=== PATIENT | male | born 1940 | race Two or more races ===

== ENCOUNTER 2024-03-31 11:15 | Inpatient (IN) | payer OTHER ==
[~2024-03-31] VITALS: Ht 172.7 cm; Wt 90.7 kg
[2024-03-31] MEDS ORDERED: PLAVIX75 MG (11:20)
[2024-03-31] MEDS ORDERED: BUSPIRONE HCL10 MG (11:20)
[2024-03-31] MEDS ORDERED: COZAAR50 MG (11:21)
[2024-03-31] MEDS ORDERED: HORIZANT300 MG (11:21)
[2024-03-31] MEDS ORDERED: ZOCOR20 MG (11:22)
[2024-03-31] MEDS ORDERED: TAMS0.4C (11:22)
[2024-03-31] MEDS ORDERED: LANTUS SOL100 UNIT/1 (11:22)
[2024-03-31] MEDS ORDERED: TOPROL XL25 M1 (11:22)
--- NOTE | 2024-03-31 11:22 | NUR ---
PTE ALERTA Y DESORIENTADO ACOMPANADO DE HENRY HIJA QUE REFIERE QUE PTE SE ESTA QUEJANDO DE DOLOR ABDOMINAL, VOMITOS X1. SE LE RAFI S/V Y SE UBICA
[2024-03-31] MEDS ORDERED: FAMOTIDINE/PF 20 MG/2 ML VIAL ONE (12:09)
[2024-03-31] MEDS ORDERED: FAMOTIDINE/PF 20 MG/2 ML VIAL IV ONE (12:15)
[2024-03-31] MEDS ORDERED: MORPHINE SULFATE 4 MG/ML VIAL IV ONE (12:15)
[2024-03-31] MEDS ORDERED: 0.9 % SODIUM CHLORIDE 500 ML IV SCH (12:15)
--- NOTE | 2024-03-31 12:18 | NUR ---
SE LE ORIENTA A PACIENTE SOBRE LA ORDEN MEDICA, REFIERE ENTENDER LAS MISMAS. SE CANALIZA Y SE LE COLOCA EL IVF'S, SE LE RAFI LAS MUETRAS Y SE LE ADMINISTRAN LOS MEDICAMENTOS FRANCISCA LA ORDEN MEDICA.
[2024-03-31 12:47] LABS: MEAN CELL VOLUME 97.5 fL (80.0-100.00); MEAN CORPUSCULAR HGB CONC 33.6 g/dl (32.0-36.0); PLATELET COUNT 170 K/uL (150-450); RED BLOOD COUNT 2.43 M/uL (4.00-6.00); RED CELL DISTRIBUTION WIDTH 16.3 % (11.5-14.5)
[2024-03-31 12:49] LABS: MEAN CORPUSCULAR HEMOGLOBIN 32.5 pg (27.00-32.0)
[2024-03-31 12:50] LABS: HEMATOCRIT 23.6 % (39.0-48.0); HEMOGLOBIN 7.9 g/dL (13-16.00)
[2024-03-31 12:57] LABS: CALCIUM 10.1 mg/dL (8.5-10.1)
[2024-03-31 13:19] LABS: CREATININE SERUM 11.2 mg/dL (0.70-1.30); GFR 4.37
[2024-03-31 13:20] LABS: POTASSIUM 6.14 mEq/L (3.5-5.1)
[2024-03-31] MEDS ORDERED: INSULIN REGULAR, HUMAN 1,000 UNIT/10 ML UNITS IV NR (13:30)
[2024-03-31] MEDS ORDERED: DEXTROSE 50 % IN WATER 0.5 G/ML VIAL IV ONE (13:30)
[2024-03-31] MEDS ORDERED: CALCIUM GLUCONATE 100 MG/ML VIAL IV ONE ×2 (13:30→19:30)
[2024-03-31] MEDS ORDERED: CALCIUM GLUCONATE 100 MG/ML VIAL ONE ×2 (14:15→19:40)
[2024-03-31 15:51] LABS: PH,URINE 5.5 (5.0-8.0); URINE APPEARANCE Clear; URINE BILIRRUBIN Negative (NEGATIVE); URINE BLOOD Negative; URINE COLOR Yellow; URINE GLUCOSE Negative (NEGATIVE); URINE LEUKOCYTE Trace; URINE NITRATE Negative; URINE PROTEIN 30 (NEGATIVE); URINE UROBILINOGEN 0.2 E.U./dl
[2024-03-31 15:52] LABS: URINE BACTERIA 12.5 uL (0.0-1933); URINE WBC 14.5 uL (0.0-23.2)
[2024-03-31 16:03] LABS: URINE RBC 0.1 uL (0.0-20.8)
[2024-03-31] MEDS ORDERED: SODIUM BICARBONATE 1 MEQ/ML DISP.SYRIN 50ML IV ONE (19:15)
[2024-03-31] MEDS ORDERED: SODIUM CHLORIDE 0.45 % 1,000 ML IV SCH (19:15)
[2024-03-31] MEDS ORDERED: DEXTROSE 5 %-0.45 % SOD CHLORD 1,000 ML IV SCH (19:30)
[2024-03-31] MEDS ORDERED: INSULIN REGULAR, HUMAN 1,000 UNIT/10 ML UNITS IV ONE (19:30)
[2024-03-31] MEDS ORDERED: SODIUM BICARBONATE 50MEQ/50ML VIAL IV ONE (19:42)
[2024-03-31] MEDS ORDERED: SODIUM POLYSTYRENE SULFONATE 15 G/4 TSP TSP PO ONE (19:45)
[2024-03-31] MEDS ORDERED: LEVALBUTEROL HCL 1.25 MG/3 ML SOLUTION IH ONE (20:51)
[2024-03-31 21:09] LABS: INR 1.14; PARTIAL THROMBOPLASTIN TIME 25.6 SECONDS (22.0-34.0); PROTHROMBIN TIME 11.9 SECONDS (9.0-11.5)
[2024-03-31] MEDS ORDERED: DEXTROSE 50 % IN WATER 0.5 G/ML VIAL IV PRN (22:15)
[2024-03-31] MEDS ORDERED: INSULIN LISPRO 1,000 UNIT/10 ML UNITS SUBCUTANEO PRN (22:15)
[2024-03-31 22:45] LABS: ALBUMIN 2.5 gm/dL (3.4-5.0); BILIRUBIN TOTAL 0.31 mg/dL (0.3-1.2); CALCIUM 8.2 mg/dL (8.5-10.1); GFR 5.64; GLOBULINA 4.2 G/DL (2.4-3.5); POTASSIUM 4.72 mEq/L (3.5-5.1); PROSTATIC SPECIFIC ANTIGEN 1.35 NG/ML (0.010-4.00); TOTAL PROTEIN 6.7 gm/dL (6.4-8.2)
[2024-03-31 22:53] LABS: CREATININE SERUM 8.98 mg/dL (0.70-1.30)
[2024-04-01] MEDS ORDERED: ACETAMINOPHEN 650 MG SUPP.RECT RECTAL ONE (00:19)
[2024-04-01] MEDS ORDERED: DILTIAZEM HCL 25 MG/5 ML VIAL IV ONE ×2 (00:51)
[2024-04-01 01:53] LABS: ABG PH 7.358 (7.35-7.45); ABG pCO2 34.8 mmHg (35-45); BASE EXCESS -5.5 mmol/l; BICARBONATE 19.1 mmol/l (23-25); SaO2 90.9 %; Tco2 20.2 mmol/l; allen test SATISFACTORY; o2 32 %; puncture site BRADIAL LEFT
[2024-04-01 01:55] LABS: ABG PO2 64.7 mmHg (80-100)
[2024-04-01] MEDS ORDERED: IRON FUM,PS/FOLIC/BCOMP,C NO.9 1 CAP CAPSULE PO SCH (09:00)
[2024-04-01] MEDS ORDERED: SODIUM POLYSTYRENE SULFONATE 30GM/8 TSP PO SCH (09:00)
[2024-04-01] MEDS ORDERED: TAMSULOSIN HCL 0.4 MG CAP PO SCH (09:00)
[2024-04-01] MEDS ORDERED: FINASTERIDE 5 MG TABLET PO SCH (09:00)
[2024-04-01] MEDS ORDERED: FAMOTIDINE/PF 20 MG in 0.9 % SODIUM CHLORIDE 100 ML IV SCH (09:00)
[2024-04-01] MEDS ORDERED: METOPROLOL SUCCINATE 25 MG TAB.SR.24H PO SCH (09:00)
[2024-04-01] MEDS ORDERED: FOLIC ACID 1 MG TABLET PO SCH (09:00)
[2024-04-01] MEDS ORDERED: METHYLPREDNISOLONE SOD SUCC 40 MG VIAL IV SCH (09:30)
[2024-04-01] MEDS ORDERED: DIPHENHYDRAMINE HCL 50 MG/ML VIAL 1ML IV SCH (09:30)
[2024-04-02] MEDS ORDERED: 0.9 % SODIUM CHLORIDE 1,000 ML IV SCH (08:30)
[2024-04-02 10:04] LABS: HEMATOCRIT 35.2 % (39.0-48.0); HEMOGLOBIN 11.8 g/dL (13-16.00); MEAN CELL VOLUME 91.6 fL (80.0-100.00); MEAN CORPUSCULAR HEMOGLOBIN 30.8 pg (27.00-32.0); MEAN CORPUSCULAR HGB CONC 33.6 g/dl (32.0-36.0); PLATELET COUNT 152 K/uL (150-450); RED BLOOD COUNT 3.84 M/uL (4.00-6.00); RED CELL DISTRIBUTION WIDTH 18.3 % (11.5-14.5)
[2024-04-02 10:50] LABS: CALCIUM 9.1 mg/dL (8.5-10.1); GFR 5.15; MAGNESIUM 1.8 mg/dL (1.8-2.4); PHOSPHOROUS 8.3 mg/dL (2.5-4.9); POTASSIUM 4.67 mEq/L (3.5-5.1)
[2024-04-02 11:18] LABS: CREATININE SERUM 9.71 mg/dL (0.70-1.30)
[2024-04-02] MEDS ORDERED: PIPERACILLIN/TAZOBACTAM SODIUM 2.25 GM in 0.9 % SODIUM CHLORIDE 50 ML IV SCH (13:28)
[2024-04-02] MEDS ORDERED: AZITHROMYCIN 500 MG VIAL IV NR (13:30)
[2024-04-03 06:48] LABS: HEMATOCRIT 31.1 % (39.0-48.0); HEMOGLOBIN 10.5 g/dL (13-16.00); MEAN CELL VOLUME 91.3 fL (80.0-100.00); MEAN CORPUSCULAR HEMOGLOBIN 30.8 pg (27.00-32.0); MEAN CORPUSCULAR HGB CONC 33.7 g/dl (32.0-36.0); PLATELET COUNT 137 K/uL (150-450); RED CELL DISTRIBUTION WIDTH 18.7 % (11.5-14.5)
[2024-04-03 07:10] LABS: ALBUMIN 2.4 gm/dL (3.4-5.0); BILIRUBIN TOTAL 0.38 mg/dL (0.3-1.2); CALCIUM 7.9 mg/dL (8.5-10.1); GLOBULINA 4.6 G/DL (2.4-3.5); MAGNESIUM 1.6 mg/dL (1.8-2.4); POTASSIUM 3.8 mEq/L (3.5-5.1)
[2024-04-03 07:22] LABS: C-REACTIVE PROTEIN 13.5 MG/DL (0.00-0.29); GFR 5.3
[2024-04-03 07:33] LABS: CREATININE SERUM 9.48 mg/dL (0.70-1.30)
[2024-04-03 08:47] LABS: MYCOPLASMA PNEUMONIAE IGM NON REACTIVE (NO REACTIVE)
[2024-04-03] MEDS ORDERED: DILTIAZEM HCL 25 MG/5 ML VIAL IV SCH (09:00)
[2024-04-03 12:32] LABS: PLATELET ESTIMATE NORMAL (NORMAL)
[2024-04-03] MEDS ORDERED: AZITHROMYCIN 2 MG/ML REDILUIDO IV SCH (14:00)
[2024-04-03] MEDS ORDERED: MEROPENEM 500 MG/VIAL VIAL IV SCH (17:00)
[2024-04-03] MEDS ORDERED: DOXYCYCLINE HYCLATE 100MG IV SCH (21:00)
[2024-04-04 03:15] LABS: ob NEGATIVE (NEGATIVE)
[2024-04-04 11:29] LABS: ALBUMIN 2.3 gm/dL (3.4-5.0); BILIRUBIN TOTAL 0.38 mg/dL (0.3-1.2); CALCIUM 8.1 mg/dL (8.5-10.1); GLOBULINA 4.3 G/DL (2.4-3.5); POTASSIUM 3.18 mEq/L (3.5-5.1); TOTAL PROTEIN 6.6 gm/dL (6.4-8.2)
[2024-04-04 11:32] LABS: GFR 5.91
[2024-04-04 11:36] LABS: CREATININE SERUM 8.62 mg/dL (0.70-1.30)
[2024-04-05 08:01] LABS: ALBUMIN 2.3 gm/dL (3.4-5.0); BILIRUBIN TOTAL 0.41 mg/dL (0.3-1.2); CALCIUM 7.8 mg/dL (8.5-10.1); GLOBULINA 4.1 G/DL (2.4-3.5); POTASSIUM 3.17 mEq/L (3.5-5.1); TOTAL PROTEIN 6.4 gm/dL (6.4-8.2)
[2024-04-05 08:13] LABS: GFR 6.35
[2024-04-05 08:17] LABS: CREATININE SERUM 8.1 mg/dL (0.70-1.30)
[2024-04-05] MEDS ORDERED: SODIUM CHLORIDE 0.45 % 1,000 ML IV SCH (10:00)
[2024-04-05] MEDS ORDERED: POTASSIUM CHLORIDE/D5-0.9%NACL 1,000 ML IV ONE (14:30)
[2024-04-05] MEDS ORDERED: POTASSIUM CHLORIDE IN WATER 100 ML IV ONE (14:45)
[2024-04-05] MEDS ORDERED: VANCOMYCIN HCL 1,000 MG VIAL IV NR (16:15)
[2024-04-06 06:35] LABS: HEMATOCRIT 28.5 % (39.0-48.0); HEMOGLOBIN 9.9 g/dL (13-16.00); MEAN CELL VOLUME 90.1 fL (80.0-100.00); MEAN CORPUSCULAR HEMOGLOBIN 31.1 pg (27.00-32.0); MEAN CORPUSCULAR HGB CONC 34.5 g/dl (32.0-36.0); PLATELET COUNT 131 K/uL (150-450); RED BLOOD COUNT 3.17 M/uL (4.00-6.00); RED CELL DISTRIBUTION WIDTH 18.6 % (11.5-14.5)
[2024-04-07 07:33] LABS: ALBUMIN 2.3 gm/dL (3.4-5.0); BILIRUBIN TOTAL 0.33 mg/dL (0.3-1.2); CALCIUM 7.5 mg/dL (8.5-10.1); GLOBULINA 3.5 G/DL (2.4-3.5); POTASSIUM 3.28 mEq/L (3.5-5.1); TOTAL PROTEIN 5.8 gm/dL (6.4-8.2)
[2024-04-07 07:42] LABS: GFR 7.67
[2024-04-07 07:45] LABS: CREATININE SERUM 6.88 mg/dL (0.70-1.30)
[2024-04-07] MEDS ORDERED: FAMOTIDINE/PF 20 MG in 0.9 % SODIUM CHLORIDE 100 ML IV SCH (09:00)
[2024-04-07] MEDS ORDERED: hydrALAZINE HCL 25 MG TABLET PO SCH (09:00)
[2024-04-09 07:55] LABS: HEMATOCRIT 26.3 % (39.0-48.0); HEMOGLOBIN 9.1 g/dL (13-16.00); MEAN CELL VOLUME 90.3 fL (80.0-100.00); MEAN CORPUSCULAR HEMOGLOBIN 31.3 pg (27.00-32.0); MEAN CORPUSCULAR HGB CONC 34.7 g/dl (32.0-36.0); RED BLOOD COUNT 2.92 M/uL (4.00-6.00); RED CELL DISTRIBUTION WIDTH 17.9 % (11.5-14.5)
[2024-04-09 07:56] LABS: PLATELET COUNT 122 K/uL (150-450)
[2024-04-09 08:40] LABS: ALBUMIN 2.3 gm/dL (3.4-5.0); BILIRUBIN TOTAL 0.4 mg/dL (0.3-1.2); CALCIUM 7.5 mg/dL (8.5-10.1); GLOBULINA 3.5 G/DL (2.4-3.5); POTASSIUM 3.01 mEq/L (3.5-5.1); TOTAL PROTEIN 5.8 gm/dL (6.4-8.2)
[2024-04-09 09:19] LABS: GFR 8.93
[2024-04-09 09:24] LABS: CREATININE SERUM 6.03 mg/dL (0.70-1.30)
[2024-04-09] MEDS ORDERED: Cyanocobalamin/Mecobalamin 1 TAB.SL SL SCH (17:00)
[2024-04-09] MEDS ORDERED: QUETIAPINE FUMARATE 25 MG TABLET PO SCH (17:00)
[2024-04-11 08:50] LABS: HEMATOCRIT 25.6 % (39.0-48.0); MEAN CELL VOLUME 89.6 fL (80.0-100.00); MEAN CORPUSCULAR HGB CONC 34.9 g/dl (32.0-36.0); PLATELET COUNT 135 K/uL (150-450); RED BLOOD COUNT 2.86 M/uL (4.00-6.00); RED CELL DISTRIBUTION WIDTH 18.2 % (11.5-14.5)
[2024-04-11 08:51] LABS: MEAN CORPUSCULAR HEMOGLOBIN 31.1 pg (27.00-32.0)
[2024-04-11 08:52] LABS: HEMOGLOBIN 8.9 g/dL (13-16.00)
[2024-04-11 09:08] LABS: INR 1.2; PARTIAL THROMBOPLASTIN TIME 27.4 SECONDS (22.0-34.0); PROTHROMBIN TIME 12.4 SECONDS (9.0-11.5)
[2024-04-11 09:39] LABS: ALBUMIN 2.3 gm/dL (3.4-5.0); BILIRUBIN TOTAL 0.49 mg/dL (0.3-1.2); CALCIUM 7.6 mg/dL (8.5-10.1); GLOBULINA 3.5 G/DL (2.4-3.5); MAGNESIUM 1.5 mg/dL (1.8-2.4); PHOSPHOROUS 5.5 mg/dL (2.5-4.9); POTASSIUM 3.21 mEq/L (3.5-5.1); TOTAL PROTEIN 5.8 gm/dL (6.4-8.2)
[2024-04-11 09:47] LABS: C-REACTIVE PROTEIN 2.8 MG/DL (0.00-0.29); GFR 9.03
[2024-04-11 09:50] LABS: CREATININE SERUM 5.97 mg/dL (0.70-1.30)
[2024-04-11] MEDS ORDERED: MAGNESIUM SULFATE IN WATER 4 GM/100 ML PIGGYBACK IV NR (10:00)
[2024-04-11] MEDS ORDERED: POTASSIUM CHLORIDE IN WATER 100 ML IV NR (10:00)
[2024-04-11] MEDS ORDERED: MIDAZOLAM HCL 2 MG/2 ML VIAL IV ONE (14:15)
[2024-04-12] MEDS ORDERED: FAMOtidine 20 MG TABLET PO SCH (09:00)
[2024-04-12] MEDS ORDERED: DEXTROSE 50 % IN WATER 0.5 G/ML DISP.SYRIN IV PRN (11:30)
[2024-04-13 08:09] LABS: ALBUMIN 2.2 gm/dL (3.4-5.0); BILIRUBIN TOTAL 0.49 mg/dL (0.3-1.2); GFR 9.47; GLOBULINA 3.4 G/DL (2.4-3.5); MAGNESIUM 1.9 mg/dL (1.8-2.4); PHOSPHOROUS 6.2 mg/dL (2.5-4.9); POTASSIUM 3.27 mEq/L (3.5-5.1); TOTAL PROTEIN 5.6 gm/dL (6.4-8.2)
[2024-04-13 08:56] LABS: CREATININE SERUM 5.73 mg/dL (0.70-1.30)
[2024-04-13] MEDS ORDERED: POTASSIUM CHLORIDE 20MEQ/100ML H2O PB IV NR (11:15)
== END 2024-04-13 21:06 | disposition home or self-care (01) | DRG 871 ==
LOC: ER 11:16 → ICU-2 20:04 → ICU 20:04 → MEDJ 04-08 16:09
PROVIDERS: General Practice; Internal Medicine; Internal Medicine Infectious Disease; Internal Medicine Nephrology; ADMIT Internal Medicine; ATTEND Internal Medicine
PROC: BT4JZZZ Ultrasonography of Kidneys and Bladder (ICD-10-PCS; principal; 2024-03-31)
PROC: BW21ZZZ Computerized Tomography (CT Scan) of Abdomen and Pelvis (ICD-10-PCS; 2024-03-31)
PROC: BB24ZZZ Computerized Tomography (CT Scan) of Bilateral Lungs (ICD-10-PCS; 2024-03-31)
PROC: 30233N1 Transfusion of Nonautologous Red Blood Cells into Peripheral Vein, Percutaneous Approach (ICD-10-PCS; 2024-03-31)
PROC: B246ZZZ Ultrasonography of Right and Left Heart (ICD-10-PCS; 2024-04-05)
PROC: 4A12X4Z Monitoring of Cardiac Electrical Activity, External Approach (ICD-10-PCS; 2024-04-08)
PROC: 0DH64UZ Insertion of Feeding Device into Stomach, Percutaneous Endoscopic Approach (ICD-10-PCS; 2024-04-11)
PROC: BB24ZZZ Computerized Tomography (CT Scan) of Bilateral Lungs (ICD-10-PCS; 2024-04-12)
DX: A41.9 Sepsis, unspecified organism (principal); J18.9 Pneumonia, unspecified organism; N17.8 Other acute kidney failure; I48.20 Chronic atrial fibrillation, unspecified; I12.9 Hypertensive chronic kidney disease with stage 1 through stage 4 chronic kidney disease, or unspecified chronic kidney disease; R13.19 Other dysphagia; N18.9 Chronic kidney disease, unspecified; E86.0 Dehydration; E11.9 Type 2 diabetes mellitus without complications; Z79.4 Long term (current) use of insulin; D72.828 Other elevated white blood cell count; F03.90 Unspecified dementia, unspecified severity, without behavioral disturbance, psychotic disturbance, mood disturbance, and anxiety